=== PATIENT | female | born 1970 | race Caucasian/White ===

== ENCOUNTER 2018-03-31 14:16 | Outpatient (CLI) | payer OTHER | END 2018-03-31 14:17 | disposition home or self-care (01) | LOC: BICMAMMO 14:16 | PROVIDERS: ATTEND Obstetrics & Gynecology | DX: Z12.31 Encounter for screening mammogram for malignant neoplasm of breast (principal) | CPT/HCPCS: 77063; 77067 ==

== ENCOUNTER 2019-02-08 08:01 | Outpatient (CLI) | payer OTHER ==
--- NOTE | 2019-02-08 09:56 | MRI ---
MRI LEFT KNEE: Date: 02/08/19 PROVIDED CLINICAL HISTORY: Left knee pain. FINDINGS: Mid substance disruption of the anterior cruciate ligament is demonstrated. There is high grade parti al tearing involving the proximal MCL. The lateral collateral ligamentous complex, posterior cruciate ligament, and extensor mechanism appear intact. The lateral meniscus demonstrates no evidence for tear. There is equivocal Grade III signal involving the body of the medial meniscus seen on the coronal images only. Articular cartilage appears preserved with the exception of a full thickness articular cartilage fiss ure involving the medial facet of the patella with minimal subjacent signal alteration within the mar row. There is a moderate knee joint effusion. Contusions are seen involving the posterolateral and posteri or medial tibial plateaus. IMPRESSION: 1. ACL disruption. 2. Equivocal medial meniscal tear. 3. Patellar articular cartilage fissure. 4. Contusions as above. 5. Moderate knee joint effusion. 6. High grade partial MCL tear. POS: OFF
== END 2019-02-08 08:02 | disposition home or self-care (01) ==
LOC: TBSIIMAG 08:01
PROVIDERS: ATTEND Orthopaedic Surgery
DX: M25.562 Pain in left knee (principal); S83.105A Unspecified dislocation of left knee, initial encounter; S83.242A Other tear of medial meniscus, current injury, left knee, initial encounter; M25.462 Effusion, left knee; S83.412A Sprain of medial collateral ligament of left knee, initial encounter

== ENCOUNTER 2019-03-08 06:12 | Outpatient (CLI) | payer OTHER ==
[2019-03-08 12:29] LABS: #Basophils 0.1 thou/uL (0.0-0.2); #Eosinphils 0.1 thou/uL (0.0-0.7); #Lymphocytes 2.8 thou/uL (1.20-3.40); #Monocytes 0.6 thou/uL (0.11-0.59); #Neutrophils 3.3 thou/uL (1.40-6.50); %Basophils 1.1 % (0.0-1.0); %Eosinophils 1.5 % (0.0-10.0); %Lymphocytes 40.4 % (21.0-51.0); %Monocytes 8.7 % (0.0-10.0); %Neutrophils 48.3 % (42.0-75.0); Hemoglobin 13.4 g/dL (12.0-16.0); Mean Corpuscular HGB CONC 32.2 g/dL (32.0-36.0); Mean Corpuscular Hemoglobin 27.8 pg (27.0-31.0); Mean Corpuscular Volume 86.4 fL (78.0-98.0); Platelet Count 216 thou/uL (130-400); RBC Distribution Width 12.6 % (11.5-14.5); White Blood Cell (WBC) Count 6.9 thou/uL (4.8-10.8)
[2019-03-08 12:53] LABS: Anion Gap 11 mmol/L (10-20); BUN (Urea Nitrogen) 15 mg/dL (7.0-18.7); Calc. Creatinine Clearance 0 mL/min (70-130); Calcium 9.9 mg/dL (7.8-10.44); Carbon Dioxide 30 mmol/L (22-29); Chloride 103 mmol/L (98-107); Estimated GFR-MDRD 72; Glucose 78 mg/dL (70-105); Potassium 4.1 mmol/L (3.5-5.1); Sodium 140 mmol/L (136-145)
== END 2019-03-08 06:13 | disposition home or self-care (01) ==
LOC: LABBT 06:12
PROVIDERS: ATTEND Orthopaedic Surgery
DX: Z01.818 Encounter for other preprocedural examination (principal); S83.512A Sprain of anterior cruciate ligament of left knee, initial encounter
CPT/HCPCS: 80048; 85025; 93005; 93010

== ENCOUNTER 2019-03-11 07:22 | Observation (INO) | payer OTHER ==
[2019-03-08 10:31] VITALS: BMI 22.9
[2019-03-11] MEDS ORDERED: Midazolam HCl 2 mg/2 ml Vial ONE (08:54)
[2019-03-11] MEDS ORDERED: Fentanyl 100 MCG/2 ML VIAL ONE ×2 (08:55→09:11)
[2019-03-11] MEDS ORDERED: HYDROcodone/Acetaminophen 10/325 mg Tablet PO PRN ×2 (09:32)
[2019-03-11] MEDS ORDERED: Ketorolac Tromethamine 30 MG/ML VIAL IVP PRN (09:32)
[2019-03-11] MEDS ORDERED: Ondansetron PF 4 MG/2 ML Vial IVP PRN (09:32)
[2019-03-11] MEDS ORDERED: Ropivacaine 0.2% 550 ML 550 ML NERVE BLCK SCH (09:32)
[2019-03-11] MEDS ORDERED: Zolpidem Tartrate 5 MG TAB PO PRN (09:32)
[2019-03-11] MEDS ORDERED: Promethazine HCl 25 MG/ML VIAL IM PRN (09:32)
[2019-03-11] MEDS ORDERED: traMADol HCl 50 MG TAB PO PRN (09:32)
[2019-03-11] MEDS ORDERED: Acetaminophen 325 MG TAB PO PRN (09:33)
[2019-03-11] MEDS ORDERED: Fentanyl 100 MCG/2 ML VIAL SLOW IVP PRN (09:33)
[2019-03-11] MEDS ORDERED: Ketorolac Tromethamine 30 MG/ML VIAL ONE (11:26)
[2019-03-11] MEDS ORDERED: ePHEDrine/0.9% NaCl/PF SYRINGE 50 mg/10 ml ONE (11:26)
[2019-03-11] MEDS ORDERED: EPINEPHrine 1 MG/ML AMP ONE (11:26)
[2019-03-11] MEDS ORDERED: Ropivacaine 0.5% HCl/PF (150 MG/30 ML VIAL) ONE (11:26)
[2019-03-11] MEDS ORDERED: PROPOFOL 200 MG/20 ML VIAL ONE (11:26)
[2019-03-11] MEDS ORDERED: Ondansetron PF 4 MG/2 ML Vial ONE (11:26)
[2019-03-11] MEDS ORDERED: Dexamethasone 20 MG/5 ML VIAL ONE (11:26)
[2019-03-11] MEDS ORDERED: Ropivacaine 0.2% HCl/PF (40 MG/20 ML VIAL) ONE (11:26)
[2019-03-11] MEDS ORDERED: Lidocaine 1% PF 5 ML VIAL ONE (11:26)
[2019-03-11] MEDS ORDERED: Morphine 2 MG/ML SYRINGE SLOW IVP PRN (11:40)
[2019-03-11] MEDS ORDERED: Acetaminophen 500 MG TAB PO PRN (11:40)
[2019-03-11] MEDS ORDERED: Methocarbamol 500 MG TAB PO PRN (11:40)
[2019-03-11] MEDS ORDERED: Morphine 4 MG/ML VIAL SLOW IVP PRN (11:40)
[2019-03-11] MEDS ORDERED: diphenhydrAMINE 50 MG CAP PO PRN (11:40)
[2019-03-11] MEDS ORDERED: Milk Of Magnesia 30 ML UDCUP PO PRN (11:40)
[2019-03-11] MEDS ORDERED: Bisacodyl 10 MG SUPP PR PRN (11:40)
[2019-03-11] MEDS ORDERED: HYDROcodone/Acetaminophen 7.5/325 mg Tablet PO PRN ×2 (11:40)
--- NOTE | 2019-03-11 14:36 | OP ---
DATE OF PROCEDURE: 03/11/2019 PREOPERATIVE DIAGNOSIS: Left knee anterior cruciate ligament tear. POSTOPERATIVE DIAGNOSES: 1. Left knee anterior cruciate ligament tear. 2. Grade 2 medial collateral ligament. PROCEDURES PERFORMED: 1. Left knee exam under anesthesia. 2. Left knee arthroscopy with arthroscopically-assisted anterior cruciate ligament reconstruction using an allograft, Achilles tendon. MARKET SURVEY REPRESENTATIVE: Benedicto Woodward PA-C ESTIMATED BLOOD LOSS: Minimal. COMPLICATIONS: None. ANESTHESIA: The patient did have a general anesthetic, also had a preoperative block. IMPLANTS: 7 x 25 metal interference screw in the femur. We used a [employer] 9 x 23 interference screw up the tibial canal and a bicortical screw with a soft tissue washer as backup on the tibia. DISPOSITION: She did go to recovery room in stable condition. INDICATIONS: This is a 48-year-old female, who comes in after injuring her knee , complaining of instability on a daily basis. At this time, she opted for ACL reconstruction. DESCRIPTION OF PROCEDURE: After all appropriate consent forms were explained and signed, Yohana was taken to the operating room and at this time was given a general anesthetic. Once the level of anesthesia was appropriate, an exam under anesthesia was performed confirming a positive Tamar's, positive pivot shift and a good endpoint in 30 degrees of flexion with a 2+ opening and good extension and stability when testing the MCL. At this time, a tourniquet was placed on the left thigh and the leg was placed in arthroscopic leg alexandra. The limb was then prepped and draped in standard surgical fashion. The limb was then exsanguinated. Tourniquet was taken up to 300 mmHg. Inferolateral portal was established and scope was placed into the knee joint. A needle localization technique was then used to make a medial working portal. Diagnostic arthroscopy commenced. ACL was found to be torn. PCL was intact. The remnant of the ACL was removed at this time with the shaver. Medial compartment was evaluated. The femur, the tibia, and the meniscus were found and probed, upon probing to be intact. The lateral compartment showed the femur , the tibia, and the meniscus to be intact as well. Popliteus tendon was in good condition. The patellofemoral joint was in good condition. No known loose bodies noted in the medial or lateral gutter. At this time, notchplasty was performed. We then flexed the knee up into the medial portal, placed a pin up and out the anterolateral thigh. We reamed this with a 10 mm reamer to a depth of 25. At this time, we removed all loose bony and cartilage debris from the knee joint. We then used our 10-mm dilator to compact the bone in the femoral tunnel. We then drilled our tibial tunnel by placing the guide into the knee joint at 52.5 degrees. A pin was placed up into the knee. A 10-mm reamer was used to ream our tibial tunnel and at this time, a dilator was used to dilate our tibial tunnel as well. We then used a rasp and nitza to smooth off any rough edges of our tunnels and we then went dry. The knee was flexed up again and the pin was used to pull our passing suture into the knee joint. This was pulled down our tibial tunnel and used to pull our graft up into the knee. A 7 x 25 metal interference screw was then used to fixate our femoral side. We then placed a 9 x 23 [employer] interference screw up the tibial canal. We then looked back into the knee joint one more time to make sure the screw was not visible. At this time, we then drilled, tapped and placed a bicortical screw with a soft tissue washer as backup for tibial fixation. At this time, the scope was placed in the knee one more time evaluating the graft through full range of motion and found to have no impingement through full flexion and extension. The scope was then removed. Knee was drained. At this time, the excess graft was removed, deep Vicryl, 2-0 Vicryl and nylon sutures were then used to close our incisions. A bulky sterile dressing was applied. Tourniquet was let down. Toes pinked up nicely. The patient was then awakened. She was taken back to the recovery room in stable condition. All counts were correct at the end of the case and she did receive preoperative IV antibiotics. Job ID: [id number] [facility]
[2019-03-11] MEDS: Dextrose 5 %-0.45 % NaCl 1,000 ML IV SCH ×2 (15:04→20:11)
[2019-03-11] MEDS: CEFAZOLIN 2 GM in Premix Bag 1 BAG IVPB SCH ×2 (17:00→23:16)
[2019-03-11] MEDS: Famotidine 20 MG TAB PO SCH (20:17)
[2019-03-12] MEDS: traMADol HCl 50 MG TAB PO PRN ×2 (04:27→11:21)
[2019-03-12] MEDS: Famotidine 20 MG TAB PO SCH (07:56)
[2019-03-12 11:42] VITALS: BP 112/68; TEMP 98.4
== END 2019-03-12 12:50 | disposition home or self-care (01) ==
LOC: SDC 07:22 → SURG A 14:03
PROVIDERS: ADMIT Orthopaedic Surgery; ATTEND Orthopaedic Surgery
PROC: 0MQP4ZZ Repair Left Knee Bursa and Ligament, Percutaneous Endoscopic Approach (ICD-10-PCS; principal; 2019-03-12)
DX: S83.512A Sprain of anterior cruciate ligament of left knee, initial encounter (principal); X58.XXXA Exposure to other specified factors, initial encounter
CPT/HCPCS: 96365; 96376; A4306; C1713; G0378; J0131; J0171; J0690; J1100; J1885; J2001; J2250; J2405; J2704; J2795; J3010

== ENCOUNTER 2019-08-12 09:43 | Outpatient (CLI) | payer OTHER ==
--- NOTE | 2019-08-12 10:29 | MMO ---
Bilateral MAMMO Bilat Screen [facility]. CLINICAL HISTORY: Patient is 49 years old and is seen for screening. The patient has no family history of breast cancer. The patient has no personal history of cancer. VIEWS: The views performed were: bilateral craniocaudal with tomosynthesis and bilateral mediolateral oblique with tomosynthesis. FILMS COMPARED: The present examination has been compared to a prior imaging study performed at [facility] on 03/31/2018. This study has been interpreted with the assistance of computer-aided detection. MAMMOGRAM FINDINGS: The breasts are heterogeneously dense, which could obscure a lesion on mammography. There are no suspicious masses, suspicious calcifications, or new areas of architectural distortion. IMPRESSION: THERE IS NO MAMMOGRAPHIC EVIDENCE OF MALIGNANCY. A ROUTINE FOLLOW-UP MAMMOGRAM IN 1 YEAR IS RECOMMENDED. THE RESULTS OF THIS EXAM WERE SENT TO THE PATIENT. ACR BI-RADS Category 1 - Negative MAMMOGRAPHY NOTE: 1. A negative mammogram report should not delay a biopsy if a dominant of clinically suspicious mass is present. 2. Approximately 10% to 15% of breast cancers are not detected by mammography. 3. Adenosis and dense breasts may obscure an underlying neoplasm. Reported by: ENID TAYLOR MD Electonically Signed: [id number]
== END 2019-08-12 09:44 | disposition home or self-care (01) ==
LOC: BICMAMMO 09:43
PROVIDERS: ATTEND Physician Assistant
DX: Z12.31 Encounter for screening mammogram for malignant neoplasm of breast (principal)
CPT/HCPCS: 77063; 77067

== ENCOUNTER 2021-04-08 11:08 | Outpatient (CLI) | payer BC, OTHER | END 2021-04-08 11:09 | disposition home or self-care (01) | LOC: BICMAMMO 11:08 | PROVIDERS: ATTEND Physician Assistant | DX: Z12.31 Encounter for screening mammogram for malignant neoplasm of breast (principal) | CPT/HCPCS: 77063; 77067 ==

== ENCOUNTER 2022-05-12 09:56 | Outpatient (CLI) | payer BC | END 2022-05-12 09:57 | disposition home or self-care (01) | LOC: BICMAMMO 09:56 | PROVIDERS: ATTEND Physician Assistant | DX: Z12.31 Encounter for screening mammogram for malignant neoplasm of breast (principal); Z80.3 Family history of malignant neoplasm of breast | CPT/HCPCS: 77063; 77067 ==

== ENCOUNTER 2023-05-14 11:38 | Outpatient (CLI) | payer BC | END 2023-05-14 11:39 | disposition home or self-care (01) | LOC: BICMAMMO 11:38 | PROVIDERS: ATTEND Physician Assistant | DX: Z12.31 Encounter for screening mammogram for malignant neoplasm of breast (principal); Z80.3 Family history of malignant neoplasm of breast | CPT/HCPCS: 77063; 77067 ==